=== PATIENT | female | born 1995 | race Hispanic/Latino ===

== ENCOUNTER 2017-11-27 17:14 | Emergency (ER) | payer OTHER ==
[2017-11-27] MEDS ORDERED: NA CHLORIDE 0.9% 1,000 ML ONE (18:17)
[2017-11-27] MEDS ORDERED: BACI/NEOMYCIN/POLY OINT 15GM TOP ONE (18:17)
[2017-11-27 19:02] LABS: Absolute Monocytes 0.5 K/uL (0.1-1.3); Absolute Neutrophil 6.4 K/uL (1.8-8.0); Basophils % 0.5 % (0-1.3); Hematocrit 39.4 % (36.0-45.0); Lymphocytes % 29.8 % (15.3-44.8); MCH 26.2 pg (27.0-35.0); MCV 80.3 fL (80-100); MPV 9.9 fL (7.6-11.3); Monocytes % 5.1 % (3.3-12.3)
[2017-11-27 19:04] LABS: Protime INR 1.08
[2017-11-27 19:07] LABS: Barbiturates NEGATIVE; Benzodiazepines NEGATIVE; Cocaine NEGATIVE; METHAMPHETAM NEGATIVE; Opiates NEGATIVE; THC Cannibis NEGATIVE
[2017-11-27 19:10] LABS: Bicarbonate 26 mEq/L (21-31); Glucose Level 93 mg/dL (65-120); Potassium 3.7 mEq/L (3.6-5.0); Sodium Level 136 mEq/L (135-145)
[2017-11-27 19:16] LABS: ALT/SGPT 13 IU/L (10-60); AST/SGOT 16 IU/L (10-42); Albumin 4.2 g/dL (3.2-5.5); Alkaline Phosphatase 75 IU/L (42-121); BUN Blood Urea Nitrogen 10 mg/dL (6-20); Bilirubin Direct < 0.1 mg/dL (0-0.2); Bilirubin Total 0.2 mg/dL (0.3-1.2); Protein, Total 7.8 g/dL (6.0-8.3)
[2017-11-27 19:25] LABS: Alcohol Serum/Plasma < 10 mg/dl; Salicylates Level < 4.0 mg/dl (<30)
[2017-11-27 19:34] LABS: Phencyclidine NEGATIVE
--- NOTE | 2017-11-27 20:54 | ER ---
Nurse's Notes [facility] Name: Itzel Prado Age: 22 yrs Sex: Female : 1995 Arrival Date: 11/27/2017 Time: 17:22 Bed 28 Private MD: Diagnosis: Adjustment disorder with depressed mood;Abrasion of left forearm;Abrasion of right forearm;Abrasion of right upper arm;Abrasion of left upper arm Presentation: 11/27 17:22 Presenting complaint: EMS states: called by mother for Pt "cutting self". Pt states "I kb1 wasn't trying to hurt myself, I was just relieving stress, I don't have any friends, I just wanted to relieve stress" Denies SI/HI. States has been cutting for the past three days. Transition of care: patient was not received from another setting of care. Onset of symptoms was November 27, 2017. Care prior to arrival: None. 17:22 Method Of Arrival: EMS: [facility] kb1 17:22 Acuity: YEE 4 kb1 Triage Assessment: 17:35 General: Appears in no apparent distress. Behavior is cooperative. Pain: Complains of kb1 pain in right upper arm. Neuro: Level of Consciousness is awake, alert, obeys commands, Oriented to person, place, time, situation. Cardiovascular: Patient's skin is warm and dry. Respiratory: Airway is patent. GI: No signs and/or symptoms were reported involving the gastrointestinal system. : No signs and/or symptoms were reported regarding the genitourinary system. Derm: fresh superficial cuts to right upper arm. Healing cuts to lower left arm and lower right arm. Pt reports that she has been cutting for the past three days to relieve stress. 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 - Social history:: Smoking status: Patient uses tobacco products, smokes one-half pack cigarettes per day. - Family history:: not pertinent. Screenin:39 Abuse screen: Denies threats or abuse. Nutritional screening: No deficits noted. kb1 Tuberculosis screening: No symptoms or risk factors identified. Fall Risk None identified. Assessment: 17:39 Reassessment: No changes from previously documented assessment. see triage assessment. kb1 19:04 Reassessment: Patient appears in no apparent distress at this time. Patient and/or kb1 family updated on plan of care and expected duration. Pain level reassessed. Patient is alert, oriented x 3, equal unlabored respirations, skin warm/dry/pink. Notified Dr. Cohn would like to speak with mother, Pt given phone to call mom. States she has attempted multiple times with no answer. 20:30 Reassessment: Patient appears in no apparent distress at this time. Patient and/or kb1 family updated on plan of care and expected duration. Pain level reassessed. Patient is alert, oriented x 3, equal unlabored respirations, skin warm/dry/pink. Pt attempting to contact mother or aunt. Notified Pt need responsible adult to come to ER to talk with . then Pt can be discharged. Vital Signs: 17:35 BP 128 / 90; Pulse 82; Resp 18; Temp 98.2; Pulse Ox 100% ; Weight 97.52 kg; Height 5 kb1 ft. 9 in. (175.26 cm); Pain 8/10; 19:05 BP 126 / 86; Pulse 82; Resp 18; Pulse Ox 100% ; kb1 20:32 BP 134 / 86; Pulse 86; Resp 18; Pulse Ox 100% ; kb1 21:02 BP 133 / 89; Pulse 80; Resp 18; Pulse Ox 100% ; tl3 17:35 Body Mass Index 31.75 (97.52 kg, 175.26 cm) kb1 ED Course: 17:22 Patient arrived in ED. kb1 17:24 Triage completed. kb1 17:35 Arm band placed on. kb1 17:39 Patient has correct armband on for positive identification. Bed in low position. Call kb1 light in reach. Pulse ox on. NIBP on. 17:39 No provider procedures requiring assistance completed. kb1 18:04 Daniel Cohn MD is Attending Physician. [facility] 18:19 Una Oshea, FARHAT is Primary Nurse. kb1 18:24 Urine collected: EKG done, by ED staff, reviewed by Daniel Cohn MD. kb1 18:25 Inserted saline lock: 20 gauge in left antecubital area, using aseptic technique. Blood kb1 collected. 18:30 Wound care: to superficial lacerations located on right bicep was cleaned with dressed kb1 with Neosporin, Patient tolerated well. 20:53 Brian Saleem MD is Referral Physician. [facility] 21:03 IV discontinued, intact, bleeding controlled, No redness/swelling at site. Pressure tl3 dressing applied. Administered Medications: 19:04 Drug: NS 0.9% 1000 ml Route: IV; Rate: 1 bolus; Site: left antecubital; kb1 20:33 Follow up: IV Status: Completed infusion kb1 19:04 Drug: Neosporin Ointment 1 application Route: Topical; Site: right upper arm; kb1 Outcome: 20:53 Discharge ordered by MD. eddie 21:03 Discharged to home ambulatory. tl3 21:03 Condition: stable 21:03 Discharge instructions given to patient, family, Instructed on discharge instructions, follow up and referral plans. Demonstrated understanding of instructions, follow-up care, stressed importance of follow up with Psych for counseling on a regular basis with pt and mom 21:04 Patient left the ED. tl3 Signatures: Daniel Cohn MD MD cha Brown, Kristina, RN RN kb1 Lynn Hamilton, RN RN tl3 Corrections: (The following items were deleted from the chart) 19:06 17:39 Patient did not have IV access during this emergency room visit. kb1 kb1
--- NOTE | 2017-11-27 20:54 | EDPHYS ---
Physician Documentation [facility] Name: Itzel Prado Age: 22 yrs Sex: Female : 1995 Arrival Date: 11/27/2017 Time: 17:22 Bed 28 Private MD: ED Physician Daniel Cohn HPI: 11/27 18:12 This 22 yrs old Female presents to ER via EMS with complaints of Psych Problem.eddie 18:12 The patient presents to the emergency department with depression. Onset: The eddie symptoms/episode began/occurred 4 week(s) ago. Past psychiatric history: Prior diagnosis: no previous psychiatric diagnosis known. Associated signs and symptoms: The patient has no apparent associated signs or symptoms. The patient has not experienced similar symptoms in the past. 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 - Social history:: Smoking status: Patient uses tobacco products, smokes one-half pack cigarettes per day. - Family history:: not pertinent. ROS: 18:12 Constitutional: Negative for fever, chills, and weight loss, Eyes: Negative for injury, eddie pain, redness, and discharge, ENT: Negative for injury, pain, and discharge, Neck: Negative for injury, pain, and swelling, Cardiovascular: Negative for chest pain, palpitations, and edema, Respiratory: Negative for shortness of breath, cough, wheezing, and pleuritic chest pain, Abdomen/GI: Negative for abdominal pain, nausea, vomiting, diarrhea, and constipation, Back: Negative for injury and pain, : Negative for injury, bleeding, discharge, and swelling, Skin: Negative for injury, rash, and discoloration, Neuro: Negative for headache, weakness, numbness, tingling, and seizure, Psych: Negative for depression, anxiety, suicide ideation, homicidal ideation, and hallucinations, Allergy/Immunology: Negative for hives, rash, and allergies, Endocrine: Negative for neck swelling, polydipsia, polyuria, polyphagia, and marked weight changes, Hematologic/Lymphatic: Negative for swollen nodes, abnormal bleeding, and unusual bruising. 18:12 MS/extremity: Positive for abrasion, of the right arm and left arm. Exam: 18:12 Constitutional: This is a well developed, well nourished patient who is awake, alert, eddie and in no acute distress. Head/Face: Normocephalic, atraumatic. Eyes: Pupils equal round and reactive to light, extra-ocular motions intact. Lids and lashes normal. Conjunctiva and sclera are non-icteric and not injected. Cornea within normal limits. Periorbital areas with no swelling, redness, or edema. ENT: Nares patent. No nasal discharge, no septal abnormalities noted. Tympanic membranes are normal and external auditory canals are clear. Oropharynx with no redness, swelling, or masses, exudates, or evidence of obstruction, uvula midline. Mucous membranes moist. Neck: Trachea midline, no thyromegaly or masses palpated, and no cervical lymphadenopathy. Supple, full range of motion without nuchal rigidity, or vertebral point tenderness. No Meningismus. Chest/axilla: Normal chest wall appearance and motion. Nontender with no deformity. No lesions are appreciated. Cardiovascular: Regular rate and rhythm with a normal S1 and S2. No gallops, murmurs, or rubs. Normal PMI, no JVD. No pulse deficits. Respiratory: Lungs have equal breath sounds bilaterally, clear to auscultation and percussion. No rales, rhonchi or wheezes noted. No increased work of breathing, no retractions or nasal flaring. Abdomen/GI: Soft, non-tender, with normal bowel sounds. No distension or tympany. No guarding or rebound. No evidence of tenderness throughout. Back: No spinal tenderness. No costovertebral tenderness. Full range of motion. Skin: Warm, dry with normal turgor. Normal color with no rashes, no lesions, and no evidence of cellulitis. MS/ Extremity: Pulses equal, no cyanosis. Neurovascular intact. Full, normal range of motion. Neuro: Awake and alert, GCS 15, oriented to person, place, time, and situation. Cranial nerves II-XII grossly intact. Motor strength 5/5 in all extremities. Sensory grossly intact. Cerebellar exam normal. Normal gait. Psych: Awake, alert, with orientation to person, place and time. Behavior, mood, and affect are within normal limits. Vital Signs: 17:35 BP 128 / 90; Pulse 82; Resp 18; Temp 98.2; Pulse Ox 100% ; Weight 97.52 kg; Height 5 kb1 ft. 9 in. (175.26 cm); Pain 8/10; 19:05 BP 126 / 86; Pulse 82; Resp 18; Pulse Ox 100% ; kb1 20:32 BP 134 / 86; Pulse 86; Resp 18; Pulse Ox 100% ; kb1 21:02 BP 133 / 89; Pulse 80; Resp 18; Pulse Ox 100% ; tl3 17:35 Body Mass Index 31.75 (97.52 kg, 175.26 cm) kb1 MDM: 18:04 Patient medically screened. [facility] 18:12 Data reviewed: vital signs, nurses notes, lab test result(s), EKG, radiologic studies, [facility] CT scan. 11/27 18:12 Order name: Acetaminophen; Complete Time: 20:13 [facility] 11/27 18:12 Order name: Basic Metabolic Panel; Complete Time: 20:13 [facility] 11/27 18:12 Order name: CBC with Diff; Complete Time: 20:13 [facility] 11/27 18:12 Order name: ETOH Level; Complete Time: 20:13 [facility] 11/27 18:12 Order name: Hepatic Function; Complete Time: 20:13 [facility] 11/27 18:12 Order name: PT-INR; Complete Time: 20:13 [facility] 11/27 18:12 Order name: Ptt, Activated; Complete Time: 20:13 [facility] 11/27 18:12 Order name: Salicylate; Complete Time: 20:13 [facility] 11/27 18:12 Order name: Urine Drug Screen; Complete Time: 20:13 [facility] 11/27 18:12 Order name: EKG; Complete Time: 18:13 [facility] 11/27 18:50 Order name: Urine Dipstick--Ancillary (enter results) 11/27 18:51 Order name: Urine --Ancillary (enter results) bd 11/27 18:12 Order name: Urine Test (obtain specimen); Complete Time: 19:03 [facility] 11/27 18:12 Order name: EKG - Nurse/Tech; Complete Time: 19:03 [facility] 11/27 18:12 Order name: IV Saline Lock; Complete Time: 19:03 [facility] 11/27 18:12 Order name: Labs collected and sent; Complete Time: 19:03 [facility] 11/27 18:12 Order name: Urine Dipstick-Ancillary (obtain specimen); Complete Time: 19:03 [facility] 11/27 18:12 Order name: Wound Care; Complete Time: 19:04 [facility] Administered Medications: 19:04 Drug: NS 0.9% 1000 ml Route: IV; Rate: 1 bolus; Site: left antecubital; kb1 20:33 Follow up: IV Status: Completed infusion [facility] 19:04 Drug: Neosporin Ointment 1 application Route: Topical; Site: right upper arm; [facility] Disposition: 11/27/17 20:53 Discharged to Home. Impression: Adjustment disorder with depressed mood, Abrasion of left forearm, Abrasion of right forearm, Abrasion of right upper arm, Abrasion of left upper arm. - Condition is Stable. - Discharge Instructions: Adjustment Disorder, Depression, Adult, Depression, Adult, [id number]. - Medication Reconciliation Form, Thank You Letter, Antibiotic Education, Prescription Opioid Use form. - Follow up: Private Physician; When: 2 - 3 days; Reason: Recheck today's complaints, Continuance of care, Re-evaluation by your physician. Follow up: Brian Saleem; When: 2 - 3 days; Reason: Recheck today's complaints, Re-evaluation by your physician. - Problem is new. - Symptoms have improved. Signatures: Dispatcher [employer] Daniel Santiago MD MD cha Brown, Kristina, RN RN kb1 Lynn Hamilton RN RN tl3
[2017-11-27 21:04] LABS: Urine Blood NEGATIVE (NEG); Urine Glucose NEGATIVE (NEG); Urine Protein NEGATIVE (NEG); Urine Specific Gravity 1.025 (1.005-1.030)
[2017-11-27 21:04] LABS: Urine Specific Gravity 1.025 (1.005-1.030)
--- NOTE | 2017-11-28 06:56 | EKG ---
Test Date: 2017-11-27 Test Time: 18:29:12 Diaper Folder: FARHEEN MEASUREMENT RESULTS: Intervals: Rate: 78 SC: 160 QRSD: 84 QT: 380 QTc: 433 [place]: P: 31 SC: 160 QRS: 24 T: 27 INTERPRETIVE STATEMENTS: Normal sinus rhythm Normal ECG Compared to ECG 07/21/2015 23:46:31 Sinus tachycardia no longer present Electronically Signed On 11-28-17 06:55:16 CDT by Shukri Salgado
== END 2017-11-27 21:04 | disposition home or self-care (01) ==
LOC: ER 17:14
DX: S50.812A Abrasion of left forearm, initial encounter (principal); S50.811A Abrasion of right forearm, initial encounter; S40.812A Abrasion of left upper arm, initial encounter; S40.811A Abrasion of right upper arm, initial encounter; X58.XXXA Exposure to other specified factors, initial encounter; Y93.9 Activity, unspecified; Y92.9 Unspecified place or not applicable; F32.9 Major depressive disorder, single episode, unspecified; F17.210 Nicotine dependence, cigarettes, uncomplicated
CPT/HCPCS: 36415; 80048; 80076; 80307; 80320; 80329; 81003; 81025; 85025; 85610; 85730; 93005; 96360; 99284; J7030

== ENCOUNTER 2018-07-07 14:48 | Emergency (ER) | payer OTHER ==
[2018-07-07] MEDS ORDERED: predniSONE 20 MG TAB ONE (15:17)
[2018-07-07] MEDS ORDERED: ALBUTEROL 2.5 MG/3 ML NEB SOL ONE (15:17)
[2018-07-07] MEDS ORDERED: IPRATROPIUM BROM 0.5MG/2.5ML ONE (15:17)
[2018-07-07 15:58] LABS: Urine Blood TRACE (NEG); Urine Glucose NEGATIVE (NEG); Urine Protein NEGATIVE (NEG); Urine Specific Gravity 1.025 (1.005-1.030)
--- NOTE | 2018-07-07 16:26 | EDPHYS ---
Physician Documentation [facility] Name: Itzel Prado Age: 22 yrs Sex: Female : 1995 Arrival Date: 07/07/2018 Time: 14:51 Bed 19 Private MD: ED Physician Ibrahima Poole HPI: 07/07 16:00 This 22 yrs old Female presents to ER via Ambulatory with complaints of pm1 Wheezing and sore throat. 16:35 The patient presents to the emergency department with wheezing, Current therapy: pm1 albuterol inhaler, albuterol nebs, that began Ran out of her medications, the patient was reported to have audible wheezing, Pre-hospital care: none. Onset: The symptoms/episode began/occurred today. Modifying factors: The symptoms are alleviated by nothing, the symptoms are aggravated by nothing. Associated signs and symptoms: Pertinent positives: sore throat, Pertinent negatives: chest pain, fever, nausea, palpitations, rash, vomiting. The patient has experienced similar episodes in the past, multiple times. The patient has not recently seen a physician. patient came to the ER requesting refill of her albuterol and wants a strep and flu test. 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 - Social history:: Smoking status: Patient uses tobacco products, smokes one-half pack cigarettes per day. - Ebola Screening: : No symptoms or risks identified at this time. ROS: 16:35 Constitutional: Negative for fever, chills, and weight loss, Eyes: Negative for injury, pm1 pain, redness, and discharge, Neck: Negative for injury, pain, and swelling, Cardiovascular: Negative for chest pain, palpitations, and edema. 16:35 Abdomen/GI: Negative for abdominal pain, nausea, vomiting, diarrhea, and constipation, Back: Negative for injury and pain. 16:35 : Negative for injury, bleeding, discharge, and swelling, MS/Extremity: Negative for injury and deformity, Skin: Negative for injury, rash, and discoloration, Neuro: Negative for headache, weakness, numbness, tingling, and seizure. 16:35 ENT: Positive for sore throat, Negative for drainage from ear(s), ear pain, difficulty swallowing, difficulty handling secretions, hoarseness. 16:35 Respiratory: Positive for wheezing, Negative for cough, dyspnea on exertion, shortness of breath, sputum production. Exam: 16:35 Constitutional: This is a well developed, well nourished patient who is awake, alert, pm1 and in no acute distress. Head/Face: Normocephalic, atraumatic. Eyes: Pupils equal round and reactive to light, extra-ocular motions intact. Lids and lashes normal. Conjunctiva and sclera are non-icteric and not injected. Cornea within normal limits. Periorbital areas with no swelling, redness, or edema. ENT: Nares patent. No nasal discharge, no septal abnormalities noted. Tympanic membranes are normal and external auditory canals are clear. Oropharynx with no redness, swelling, or masses, exudates, or evidence of obstruction, uvula midline. Mucous membranes moist. Neck: Trachea midline, no thyromegaly or masses palpated, and no cervical lymphadenopathy. Supple, full range of motion without nuchal rigidity, or vertebral point tenderness. No Meningismus. Chest/axilla: Normal chest wall appearance and motion. Nontender with no deformity. No lesions are appreciated. Cardiovascular: Regular rate and rhythm with a normal S1 and S2. No gallops, murmurs, or rubs. Normal PMI, no JVD. No pulse deficits. 16:35 Abdomen/GI: Soft, non-tender, with normal bowel sounds. No distension or tympany. No guarding or rebound. No evidence of tenderness throughout. Back: No spinal tenderness. No costovertebral tenderness. Full range of motion. Skin: Warm, dry with normal turgor. Normal color with no rashes, no lesions, and no evidence of cellulitis. MS/ Extremity: Pulses equal, no cyanosis. Neurovascular intact. Full, normal range of motion. 16:35 Respiratory: the patient does not display signs of respiratory distress, Respirations: normal, Breath sounds: wheezing: expiratory is heard diffusely. 16:35 Neuro: Orientation: is normal, Motor: is normal, moves all fours, strength is normal. Vital Signs: 14:55 BP 127 / 83; Pulse 114; Resp 16; Temp 97.6; Pulse Ox 94% on R/A; Weight 86.18 kg; la1 Height 5 ft. 5 in. (165.10 cm); 15:57 Pulse 106; Resp 20; Pulse Ox 96% on R/A; em 14:55 Body Mass Index 31.62 (86.18 kg, 165.10 cm) la1 MDM: 14:56 Patient medically screened. pm1 16:23 Data reviewed: vital signs. Counseling: I had a detailed discussion with the patient pm1 and/or guardian regarding: the historical points, exam findings, and any diagnostic results supporting the discharge/admit diagnosis, the need for outpatient follow up, to return to the emergency department if symptoms worsen or persist or if there are any questions or concerns that arise at home. 07/07 15:02 Order name: Flu; Complete Time: 16:23 pm1 07/07 15:02 Order name: Strep; Complete Time: 16:23 pm1 07/07 15:25 Order name: Urine Dipstick--Ancillary (enter results); Complete Time: 16:23 eb 07/07 15:25 Order name: Urine --Ancillary (enter results); Complete Time: 16:23 eb 07/07 15:42 Order name: Throat Culture EDKY 07/07 15:15 Order name: Urine Dipstick-Ancillary (obtain specimen); Complete Time: 15:16 pm1 07/07 15:15 Order name: Urine Test (obtain specimen); Complete Time: 15:16 pm1 Administered Medications: 15:16 Drug: Albuterol - atroVENT (3:1) (2.5 mg - 0.5 mg) 3 ml Route: Nebulizer; em 16:14 Follow up: Response: No adverse reaction; Marked relief of symptoms em 15:16 Drug: predniSONE 60 mg Route: PO; em 16:14 Follow up: Response: No adverse reaction em Disposition: 07/08 09:51 Co-signature as Attending Physician, Ibrahima Poole MD. gs Disposition: 07/07/18 16:25 Discharged to Home. Impression: Unspecified asthma with (acute) exacerbation, Acute pharyngitis. - Condition is Stable. - Discharge Instructions: Asthma, Adult, How to Use an Inhaler, Pharyngitis. - Prescriptions for Albuterol Sulfate 2.5 mg /3 mL (0.083 %) Inhalation Solution for Nebulization - inhale 1 unit by NEBULIZATION route every 8 hours As needed; 1 box. Medrol (Tyler) 4 mg Oral Tablets, Dose Pack - take 1 tablet by ORAL route as directed - follow package instructions; 1 packet. Albuterol Sulfate 90 mcg/actuation - inhale 1-2 puff by INHALATION route every 4-6 hours; 1 Inhaler. - Medication Reconciliation Form, Thank You Letter, Antibiotic Education form. - Follow up: Emergency Department; When: As needed; Reason: Worsening of condition. Follow up: Private Physician; When: 2 - 3 days; Reason: Recheck today's complaints, Continuance of care, Re-evaluation by your physician. - Problem is new. - Symptoms have improved. Signatures: Dispatcher [employer] EDMS Basilio Mullen, CINDER PITMAN CINDER PITMAN Mani Diaz RN RN la1 Martinez Torres RN RN hj Jay Gomez, AMBULANCE ATTENDANT AMBULANCE ATTENDANT pm1 Ibrahima Poole MD MD gs Corrections: (The following items were deleted from the chart) 07/07 16:33 16:25 07/07/2018 16:25 Discharged to Home. Impression: Unspecified asthma with (acute) hj exacerbation; Acute pharyngitis. Condition is Stable. Forms are Medication Reconciliation Form, Thank You Letter, Antibiotic Education, Prescription Opioid Use. Follow up: Emergency Department; When: As needed; Reason: Worsening of condition. Follow up: Private Physician; When: 2 - 3 days; Reason: Recheck today's complaints, Continuance of care, Re-evaluation by your physician. Problem is new. Symptoms have improved. pm1
--- NOTE | 2018-07-07 16:26 | ER ---
Nurse's Notes [facility] Name: Itzel Prado Age: 22 yrs Sex: Female : 1995 Arrival Date: 07/07/2018 Time: 14:51 Bed 19 Private MD: Diagnosis: Unspecified asthma with (acute) exacerbation;Acute pharyngitis Presentation: 07/07 14:54 Presenting complaint: Patient states: I have asthma and need my medications filles, I la1 also need to be checked for strep and flu because I have a cold. Transition of care: patient was not received from another setting of care. Onset of symptoms was July 07, 2018. Risk Assessment: Do you want to hurt yourself or someone else? Patient reports no desire to harm self or others. Initial Sepsis Screen: Does the patient meet any 2 criteria? No. Patient's initial sepsis screen is negative. Does the patient have a suspected source of infection? No. Patient's initial sepsis screen is negative. Care prior to arrival: None. 14:54 Method Of Arrival: Ambulatory la1 14:54 Acuity: YEE 4 la1 Triage Assessment: 16:32 General: Appears in no apparent distress. uncomfortable, Behavior is calm, cooperative, hj appropriate for age. Pain: Denies pain. 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 - Social history:: Smoking status: Patient uses tobacco products, smokes one-half pack cigarettes per day. - Ebola Screening: : No symptoms or risks identified at this time. Screenin:32 Abuse screen: Denies threats or abuse. Denies injuries from another. Nutritional hj screening: No deficits noted. Tuberculosis screening: No symptoms or risk factors identified. Fall Risk None identified. Assessment: 15:14 General: Appears in no apparent distress. uncomfortable, Behavior is calm, cooperative. em Pain: Denies pain. Neuro: Level of Consciousness is awake, alert, obeys commands, Oriented to person, place, time, situation. Cardiovascular: Capillary refill < 3 seconds Patient's skin is warm and dry. Respiratory: Airway is patent Respiratory effort is even, unlabored, Respiratory pattern is regular, symmetrical, Breath sounds with wheezes bilaterally. Onset: The symptoms/episode began/occurred yesterday, the patient has mild shortness of breath. GI: Abdomen is round non-distended. : No signs and/or symptoms were reported regarding the genitourinary system. EENT: No signs and/or symptoms were reported regarding the EENT system. Derm: Skin is intact, Skin is pink, warm \T\ dry. Musculoskeletal: Range of motion: intact in all extremities. 15:14 Reassessment: I agree with assessment completed by Basilio Mullen LVN . aa5 15:50 Reassessment: Patient appears in no apparent distress at this time. Patient and/or em family updated on plan of care and expected duration. Pain level reassessed. Patient is alert, oriented x 3, equal unlabored respirations, skin warm/dry/pink. Patient states feeling better. Patient states symptoms have improved. Vital Signs: 14:55 BP 127 / 83; Pulse 114; Resp 16; Temp 97.6; Pulse Ox 94% on R/A; Weight 86.18 kg; la1 Height 5 ft. 5 in. (165.10 cm); 15:57 Pulse 106; Resp 20; Pulse Ox 96% on R/A; em 14:55 Body Mass Index 31.62 (86.18 kg, 165.10 cm) la1 ED Course: 14:51 Patient arrived in ED. tw3 14:54 Triage completed. la1 14:55 Arm band placed on left wrist. la1 14:56 Jay Gomez NP is PHCP. pm1 14:56 Ibrahima Poole MD is Attending Physician. pm1 14:56 Basilio Mullen LVN is Primary Nurse. em 15:17 Flu and/or RSV swab sent to lab. Strep swab sent to lab. em 16:32 Patient has correct armband on for positive identification. Bed in low position. Call hj light in reach. Side rails up X 1. 16:33 No provider procedures requiring assistance completed. Patient did not have IV access hj during this emergency room visit. Administered Medications: 15:16 Drug: Albuterol - atroVENT (3:1) (2.5 mg - 0.5 mg) 3 ml Route: Nebulizer; em 16:14 Follow up: Response: No adverse reaction; Marked relief of symptoms em 15:16 Drug: predniSONE 60 mg Route: PO; em 16:14 Follow up: Response: No adverse reaction em Outcome: 16:25 Discharge ordered by . pm1 16:33 Discharged to home ambulatory. 16:33 Condition: stable 16:33 Discharge instructions given to patient, Instructed on discharge instructions, follow up and referral plans. medication usage, Demonstrated understanding of instructions, follow-up care, medications, Prescriptions given X 3. 16:33 Patient left the ED. Signatures: Basilio Mullen, SURGEON/PRESIDENT SURGEON/PRESIDENT Kavitha Aguilar, RN RN aa5 Mani Perez RN RN la1 Martinez Torres RN RN hj Jay Gomez, ACCESS ASSOC ACCESS ASSOC pm1 Lucy Rogers tw3
== END 2018-07-07 16:33 | disposition home or self-care (01) ==
LOC: ER 14:48
DX: J45.901 Unspecified asthma with (acute) exacerbation (principal); F17.210 Nicotine dependence, cigarettes, uncomplicated; Z79.899 Other long term (current) drug therapy
CPT/HCPCS: 81003; 81025; 87070; 87081; 87804; 94640; 99284; J7512

== ENCOUNTER 2022-08-30 10:09 | Emergency (ER) | payer OTHER ==
--- OUTSIDE RECORDS SUMMARY | 2022-08-30 10:14 | XMS REPORT | Continuity of Care Document ---
:1995 Author Organization Formerly [facility] t Address [address] [place] [address] Care Team Providers Name Role Phone Pcp, Patient Does Not Have A Primary Care Physician +[id number] Doctor Unassigned, [place] Attending Clinician Unavailable Albert Cheema MD Attending Clinician ALBERT CHEEMA Attending Clinician Unavailable Albert Cheema MD Admitting Clinician ALBERT CHEEMA Admitting Clinician Unavailable Payers Payer Name Policy Type Policy Number Effective Date Expiration Date S ource Problems Condition Condition Condition Status Onset Resolution Last Treating Co mments Source Name Details Category Date Date Treatment Clinician Date Pseudopreg Pseudopreg Disease Active [place] 2-24 ity of 00:00: [address] Irregular Irregular Disease Active Uni vers menstrual menstrual 2-15 ity of cycle cycle 00:00: [address] Obese Obese Disease Active Univers 2-15 ity of 00:00: [address] Tobacco Tobacco Disease Active Univers use use 2-15 ity of disorder disorder 00:00: [address] Schizophre Schizophre Disease Active U nivers kp kp 2-15 ity of 00:00: [address] Depression Depression Disease Active U nivers 2-15 ity of 00:00: [address] Generalize Generalize Disease Active U nivers d anxiety d anxiety 2-15 ity of disorder disorder 00:00: [place] 00 [facility] History of History of Disease Active U nivers suicide suicide 2-15 ity of attempt attempt 00:00: [place] 00 [facility] Allergies, Adverse Reactions, Alerts Allergy Allergy Status Severity Reaction(s) Onset Inactive Treating Comm ents Source Name Type Date Date Clinician QUETIAPI DRUG Active Unknown-Cmnt Un deanna NE INGREDI 2-13 ity of FUMARATE 00:00: [place] 00 [facility] Quetiapi Propensi Active Unknown - Uni vers ne ty to See comments 2-13 ity of Fumarate adverse 00:00: [place] reaction 00 Medical s [place] Social History Social Habit Start Date Stop Date Quantity Comments Source History of tobacco Cigarette Smoker University of use [facility] Alcohol intake 2017-03-12 2017-03-12 Current University 00:00:00 00:00:00 non-drinker of [facility] alcohol Brick (finding) Cigarette 2014-10-03 2014-10-03 University of pack-years 00:00:00 00:00:00 [facility] Tobacco use and 2014-10-03 2014-10-03 Never used Universit y of exposure 00:00:00 00:00:00 [facility] Cigarettes smoked 2014-10-03 2014-10-03 Univers ity of current (pack per 00:00:00 00:00:00 [place] ) - Reported Branch Sex Assigned At [birth year] Universit y of 00:00:00 00:00:00 [facility] Smoking Status Start Date Stop Date Source Current every day smoker 2014-10-03 00:00:00 Uni versity of [facility] Medications Ordered Filled Start Stop Current Ordering Indication Dosage Frequency Signature Comments Components Source Medication Medication Date Date Medication? Clinician (SIG) Name Name RISPERIDONE Yes [id number] by Un deanna MICROSPHERE 2-25 Intramuscu it y of S 02:12: lar route [place] (RISPERDAL 44 every 2 Medica l CONSTA IM) (two) Branch weeks. lurasidone Yes [id number] 1{tbl} Take 1 Tab Univers (LATUDA) 80 2-25 by mouth ity of mg Tab 02:12: daily. [place] 44 [facility] divalproex 0 Yes [id number] 500mg Take 500 Univers (DEPAKOTE) 2-25 mg by ity of 500 mg EC 02:12: mouth [place] tablet 44 every 12 Medical (twelve) Branch hours. traZODone 0 Yes [id number] 150mg Take 150 Univers (DESYREL) 2-25 mg by ity of 150 mg 02:12: mouth at [place] tablet 44 bedtime. Medical Branch RISPERIDONE 0 Yes [id number] by Un deanna MICROSPHERE 2-24 Intramuscu it y of S 20:12: lar route [place] (RISPERDAL 44 every 2 Medica l CONSTA IM) (two) Branch weeks. lurasidone Yes [id number] 1{tbl} Take 1 Tab Univers (LATUDA) 80 2-24 by mouth ity of mg Tab 20:12: daily. [place] 44 [facility] Branch divalproex 0 Yes [id number] 500mg Take 500 Univers (DEPAKOTE) 2-24 mg by ity of 500 mg EC 20:12: mouth [place] tablet 44 every 12 Medical (twelve) Branch hours. traZODone Yes [id number] 150mg Take 150 Univers (DESYREL) 2-24 mg by ity of 150 mg 20:12: mouth at [place] tablet 44 bedtime. [facility] Branch Immunizations Ordered Filled Immunization Date Status Comments [facility] e Immunization Name Name Influenza Virus 2010-05-13 Completed Universit y of Vaccine 00:00:00 [facility] Influenza Virus 2010-05-13 Completed Universit y of Vaccine 00:00:00 [facility] HPV 2009-12-28 Completed University of 00:00:00 [facility] HPV 2009-12-28 Completed University of 00:00:00 [facility] HPV 2009-09-30 Completed University of 00:00:00 [facility] HPV 2009-09-30 Completed University of 00:00:00 [facility] HPV 2009-06-30 Completed University of 00:00:00 [facility] HPV 2009-06-30 Completed University of 00:00:00 [facility] Td 2007-08-21 Completed University of 00:00:00 [facility] Td 2007-08-21 Completed University of 00:00:00 [facility] Influenza Virus 2005-07-06 Completed Universit y of Vaccine 00:00:00 [facility] Influenza Virus 2005-07-06 Completed Universit y of Vaccine 00:00:00 [facility] Vital Signs Vital Name Observation Time Observation Value Comments Source Systolic blood 2020-10-15 00:30:00 136 mm[Hg] Univer sity of pressure [facility] Diastolic blood 2020-10-15 00:30:00 75 mm[Hg] Unive rsity of pressure [facility] Heart rate 2020-10-15 00:30:00 104 /min Universi ty of [facility] Respiratory rate 2020-10-15 00:30:00 18 /min [facility] Oxygen saturation in 2020-10-15 00:30:00 100 /min [facility] Arterial blood by [facility] Pulse oximetry [place] Body temperature 2020-10-15 00:05:[address] [facility] Procedures Procedure Date / Time Performing Clinician Source Performed VACCINATIONS - 2022-01-03 05:01:00 Doctor Unassigned, No [facility] CONSENTS, ELIGIBILITY, Name Medical B [facility] HISTORY Encounters Start End Encounter Admission Attending Care Care Encounter Source Date/Time Date/Time Type Type Clinicians Facility Department ID 2022-01-03 2022-01-03 Orders Doctor CRYSTAL [id number] Univers 00:00:00 00:00:00 Only Unassigned, LILIANA [id number] ity of [place] [facility] [id number] Don [id number] [facility] 009 Branch 2020-10-14 2020-10-14 [facility] [id number] Univers 17:50:00 19:15:00 Encounter Albert Burton [id number] ity of [place] [id number] [facility] [id number] [facility] 083 Branch 2020-10-14 2020-10-14 Outpatient P [facility] ADAMARIS [id number] Univers 17:50:00 17:50:00 ALBERT morrow [facility] Results This patient has no known results.
[2022-08-30 10:39] LABS: Urine Blood Negative (Negative); Urine Glucose Negative (Negative); Urine Protein Negative (Negative)
--- NOTE | 2022-08-30 11:00 | EDPHYS ---
Physician Documentation [facility] Name: Itzel Prado Age: 26 yrs Sex: Female : 1995 Arrival Date: 08/30/2022 Time: 10:10 Bed 10 Private MD: ED Physician Shelly Saleem HPI: 08/30 11:12 This 26 yrs old Female presents to ER via Ambulatory with complaints of kb Possible , Abdominal Pain. 11:12 The patient presents to the emergency department with abdominal pain, described as kb crampy. course: care: none, Ultrasound: the patient had an ultrasound, which was normal. Previous pregnancies: the patient has never been . Associated signs and symptoms: Pertinent positives: abdominal pain, Pertinent negatives: chest pain, diarrhea, dysuria, fever, frequency, nausea, ruptured membranes, seizure, shortness of breath, vaginal bleeding, vaginal discharge, vomiting. The patient has not experienced similar symptoms in the past. The patient has not recently seen a physician. Pt reports she is with first and due now. Reports abd muscles have been tightening up and letting go intermittently for the past 2 days. . 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 - Social history:: Smoking status: Patient reports the use of cigarette tobacco products, smokes one pack cigarettes per day. ROS: 11:12 Constitutional: Negative for fever, chills, and weight loss. kb 11:12 Abdomen/GI: Positive for abdominal cramps. 11:12 All other systems are negative. Exam: 11:12 Constitutional: This is a well developed, well nourished patient who is awake, alert, kb and in no acute distress. Head/Face: Normocephalic, atraumatic. ENT: Moist Mucous membranes Cardiovascular: Regular rate and rhythm with a normal S1 and S2. No gallops, murmurs, or rubs. No pulse deficits. Respiratory: Respirations even and unlabored. No increased work of breathing. Talking in full sentences Abdomen/GI: Soft, non-tender. No distention Skin: Warm, dry with normal turgor. Normal color. MS/ Extremity: Pulses equal, no cyanosis. Neurovascular intact. Full, normal range of motion. Neuro: Awake and alert, GCS 15, oriented to person, place, time, and situation. Moves all extremities. Normal gait. Vital Signs: 10:28 BP 108 / 73; Pulse 111; Resp 15; Temp 99.2(O); Pulse Ox 98% on R/A; Weight 86.18 kg; ss Height 5 ft. 8 in. (172.72 cm); Pain 08/30; 10:28 Body Mass Index 28.89 (86.18 kg, 172.72 cm) ss MDM: 10:28 Patient medically screened. kb 10:55 Differential diagnosis: UTI, . Data reviewed: vital signs, nurses notes. kb Counseling: I had a detailed discussion with the patient and/or guardian regarding: the historical points, exam findings, and any diagnostic results supporting the discharge/admit diagnosis, lab results, the need for outpatient follow up, a family practitioner, to return to the emergency department if symptoms worsen or persist or if there are any questions or concerns that arise at home. 11:09 Differential diagnosis: nonspecific abd pain. Test considered but Not performed: Labs: kb Quantitative Hcg, CBC, BMP considered, but urine test is negative. Ultrasound OB US considered, but pt's urine test is negative. 11:15 ED course: Discussed negative results with pt. Pt states "my partner was kb trying to hide the so maybe it is hidden from y'all too." Pt will follow up with PCP. Ambulated out of ED with steady gait. 08/30 10:39 Order name: Urine Dipstick-Ancillary; Complete Time: 10:42 EDMS 08/30 10:47 Order name: Urine --Ancillary (enter results); Complete Time: 10:54 bd 08/30 10:28 Order name: Urine Dipstick-Ancillary (obtain specimen); Complete Time: 10:35 kb 08/30 10:28 Order name: Urine Test (obtain specimen); Complete Time: 10:35 kb Administered Medications: No medications were administered Disposition Summary: 08/30/22 10:59 Discharge Ordered Location: Home kb Condition: Stable kb Diagnosis - Abdominal pain, Generalized kb Followup: kb - With: Emergency Department - When: As needed - Reason: Worsening of condition Followup: kb - With: Private Physician - When: 2 - 3 days - Reason: Recheck today's complaints, Continuance of care, Re-evaluation by your physician Discharge Instructions: - Discharge Summary Sheet kb - Abdominal Pain, Adult, [id number] kb Forms: - Medication Reconciliation Form kb - Thank You Letter kb - Antibiotic Education kb - Prescription Opioid Use kb Signatures: Dispatcher [employer] EDIA Kenyatta Abreu, Silvana Ramirez RN RN ss Corrections: (The following items were deleted from the chart) 11:08 10:55 Differential diagnosis: UTI, kb kb
--- NOTE | 2022-08-30 11:00 | ER ---
Nurse's Notes [facility] Name: Itzel Prado Age: 26 yrs Sex: Female : 1995 Arrival Date: 08/30/2022 Time: 10:10 Bed 10 Private MD: Diagnosis: Abdominal pain, Generalized Presentation: 08/30 10:28 Chief complaint: Patient states: Pt c/o abd cramping that began 2 days ago. Pt believes ss she is and due now. Unknown last LMP. Coronavirus screen: Client denies travel out of the [place] in the last 14 days. Ebola Screen: Patient denies exposure to infectious person. Patient denies travel to an Ebola-affected area in the 21 days before illness onset. Initial Sepsis Screen: Does the patient meet any 2 criteria? No. Patient's initial sepsis screen is negative. Does the patient have a suspected source of infection? No. Patient's initial sepsis screen is negative. Risk Assessment: Do you want to hurt yourself or someone else? Patient reports no desire to harm self or others. Onset of symptoms was August 28, 2022. 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 - Social history:: Smoking status: Patient reports the use of cigarette tobacco products, smokes one pack cigarettes per day. Vital Signs: 10:28 BP 108 / 73; Pulse 111; Resp 15; Temp 99.2(O); Pulse Ox 98% on R/A; Weight 86.18 kg; ss Height 5 ft. 8 in. (172.72 cm); Pain 1/10; 10:28 Body Mass Index 28.89 (86.18 kg, 172.72 cm) ED Course: 10:10 Patient arrived in ED. mr 10:16 Kenyatta Abreu [facility]-C [facility] kb 10:16 Shelly Saleem MD is Attending Physician. kb 10:31 Triage completed. ss 10:31 Arm band placed on right wrist. ss 10:35 Smirch, Silvana, RN is Primary Nurse. ss 11:00 No provider procedures requiring assistance completed. Patient did not have IV access ss during this emergency room visit. Administered Medications: No medications were administered Outcome: 10:59 Discharge ordered by . long 11:00 Discharged to home ambulatory. ss 11:00 Condition: good 11:00 Instructed on LAURA You discussed plan of care. Pt left prior to signing discharge instructions. 11:00 Patient left the ED. ss Signatures: Kenyatta Abreu, DAVIS-Keith CANNON-Genie Alex mr Silvana Gomez, RN RN ss
[2022-08-30 11:05] VITALS: BP 108/73; TEMP 99.2; O2SAT 98
== END 2022-08-30 11:00 | disposition home or self-care (01) ==
LOC: ER 10:09
DX: R10.84 Generalized abdominal pain (principal); F17.210 Nicotine dependence, cigarettes, uncomplicated
CPT/HCPCS: 81003; 81025; 99281

== ENCOUNTER → 2023-09-02 | Emergency (ER) | payer OTHER ==
[~2023-09-02] MED LIST: AMOX/K CLAV 875 MG TAB ONE; HYDROCODONE/APAP 5/325 MG TAB ONE
--- OUTSIDE RECORDS SUMMARY | 2023-09-02 11:43 | XMS REPORT | Continuity of Care Document ---
Author Name Unknown Address [address] [place] [address] [facility] thconnect Address 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 Role Phone Pcp, Patient Does Not Have A Primary Care Physic jacqueline Doctor Unassigned, Flowella Attending Clinician U Albert Ball MD Attending Clinician [phone] ALBERT CHEEMA Attending Clinician Unavailable Albert Cheema MD Admitting Clinician [phone] ALBERT CHEEMA Admitting Clinician Unavailable Payers Payer Name Policy Type Policy Number Effective Date Expirati on Date Source Problems Condition Name Condition Details Condition Category Status Onset Date Resolution Date Last Treatment Date Treating Clinician Comments Source Pseudopreg brigid Pseudopreg brigid Disease Active 10-14 00:00: 00 [facility] Irregular menstrual cycle Irregular menstrual cycle Disease Active 10-05 00:00: 00 [facility] Obese Obese Disease Active 10-05 00:00: 00 [facility] Tobacco use disorder Tobacco use disorder Disease Active 10-05 00:00: 00 [facility] Schizophre kp Schizophre kp Disease Active 10-05 00:00: 00 [facility] Depression Depression Disease Active 10-05 00:00: 00 [facility] Generalize d anxiety disorder Generalize d anxiety disorder Disease Active 10-05 00:00: 00 [facility] History of suicide attempt History of suicide attempt Disease Active 10-05 00:00: 00 [facility] Allergies, Adverse Reactions, Alerts Allergy Name Allergy Type Status Severity Reaction(s) Onset Date Inactive Date Treating Clinician Comments Source QUETIAPI NE FUMARATE DRUG INGREDI Active Unknown-Cmnt 10-03 00:00: 00 [facility] Quetiapi ne Fumarate Propensi ty to adverse reaction s Active Unknown - See comments 10-03 00:00: 00 [facility] Social History Social Habit Start Date Stop Date Quantity Comments Source History of tobacco use Cigarette Smoker [facility] Alcohol intake 2017-03-12 00:00:00 2017-03-12 00:00:00 Current non-drinker of alcohol (finding) [facility] Cigarette pack-years 2014-10-03 00:00:00 2014-10-03 00:00:00 [facility] Tobacco use and exposure 2014-10-03 00:00:00 2014-10-03 00:00:00 Never used [facility] Cigarettes smoked current (pack per day) - Reported 2014-10-03 00:00:00 2014-10-03 00:00:00 [facility] Sex Assigned At 1995 00:00:00 1995 00:00:00 [facility] Smoking Status Start Date Stop Date Source Current every day smoker 2014-10-03 00:00:00 [facility] Medications Ordered Medication Name Filled Medication Name Start Date Stop Date Current Medication? Ordering Clinician Indication Dosage Frequency Signature (SIG) Comments Components Source RISPERIDONE MICROSPHERE S (RISPERDAL CONSTA IM) 10-15 02:12: 44 Yes [id number] by Intramuscu lar route every 2 (two) weeks. [facility] lurasidone (LATUDA) 80 mg Tab 10-15 02:12: 44 Yes [id number] 1{tbl} Take 1 Tab by mouth daily. [facility] divalproex (DEPAKOTE) 500 mg EC tablet 10-15 02:12: 44 Yes [id number] 500mg Take 500 mg by mouth every 12 (twelve) hours. [facility] traZODone (DESYREL) 150 mg tablet 10-15 02:12: 44 Yes [id number] 150mg Take 150 mg by mouth at bedtime. [facility] RISPERIDONE MICROSPHERE S (RISPERDAL CONSTA IM) 10-14 20:12: 44 Yes [id number] by Intramuscu lar route every 2 (two) weeks. [facility] lurasidone (LATUDA) 80 mg Tab 10-14 20:12: 44 Yes [id number] 1{tbl} Take 1 Tab by mouth daily. [facility] divalproex (DEPAKOTE) 500 mg EC tablet 10-14 20:12: 44 Yes [id number] 500mg Take 500 mg by mouth every 12 (twelve) hours. [facility] traZODone (DESYREL) 150 mg tablet 10-14 20:12: 44 Yes [id number] 150mg Take 150 mg by mouth at bedtime. [facility] Vital Signs Vital Name Observation Time Observation Value Comments S adamace Systolic blood pressure 2020-10-15 00:30:00 136 mm[Hg] [facility] Diastolic blood pressure 2020-10-15 00:30:00 75 mm[Hg] [facility] Heart rate 2020-10-15 00:30:00 104 /min [facility] Respiratory rate 2020-10-15 00:30:00 18 /min [facility] Oxygen saturation in Arterial blood by Pulse oximetry 2020-10-15 00:30:00 100 /min [facility] Body temperature 2020-10-15 00:05:00 36.94 Анна [facility] Procedures Procedure Date / Time Performed Performing Clinician Source VACCINATIONS - CONSENTS, ELIGIBILITY, HISTORY 2022-01-03 05:01:00 Doctor Unassigned, Flowella [facility] Encounters Start Date/Time End Date/Time Encounter Type Admission Type Attending Clinicians Care Facility Care Department Encounter ID Source 2022-01-03 00:00:00 2022-01-03 00:00:00 Orders Only Doctor Unassigned, Flowella [facility] [id number] [facility] 2020-10-14 17:50:00 2020-10-14 19:15:00 Hospital Encounter Albert Cheema [facility] [id number] [facility] 2020-10-14 17:50:00 2020-10-14 17:50:00 Outpatient P ALBERT CHEEMA ADAMARIS [id number] [facility]
--- NOTE | 2023-09-02 12:01 | EDPHYS ---
Physician Documentation [facility] Name: Itzel Prado Age: 28 yrs Sex: Female : 1995 Arrival Date: 09/02/2023 Time: 11:41 Bed IW5 Private MD: ED Physician Daniel Cohn HPI: 09/02 12:24 This 28 yrs old Female presents to ER via Unassigned with complaints of kb Toothache. 12:24 Pt is a 28 year old female who presents for toothache that started one week ago. Denies kb fever, chills, States the pain is getting worse. Nothing makes pain better or worse. Historical: - Allergies: 12:26 No Known Allergies; nj1 - PMHx: 12:26 Asthma; nj1 - Immunization history:: Client reports having NOT received the Covid vaccine. - Social history:: Smoking status: Patient reports the use of cigarette tobacco products, smokes two packs cigarettes per day. ROS: 12:23 Constitutional: Negative for fever, chills, and weight loss, kb 12:23 ENT: Positive for dental pain, 12:23 All other systems are negative, Exam: 12:23 Constitutional: This is a well developed, well nourished patient who is awake, alert, kb and in no acute distress. Head/Face: Normocephalic, atraumatic. Cardiovascular: Regular rate Respiratory: Respirations even and unlabored. No increased work of breathing. Talking in full sentences Skin: Warm, dry with normal turgor. Normal color. MS/ Extremity: Pulses equal, no cyanosis. Neurovascular intact. Full, normal range of motion. Neuro: Awake and alert, GCS 15, oriented to person, place, time, and situation. Moves all extremities. Normal gait. 12:23 ENT: Dental exam: dental caries, pain, that is moderate, specifically in the upper left second bicuspid (#13), Vital Signs: 12:24 BP 146 / 99; Pulse 108; Resp 17; Temp 98.1(TE); Pulse Ox 95% ; Weight 74.84 kg; Height nj1 5 ft. 9 in. ; Pain 10/10; 12:24 Body Mass Index 24.37 (74.84 kg, 175.26 cm) [facility] 12:24 Pain Scale: Adult nj1 MDM: 11:55 Patient medically screened. kb 12:24 Data reviewed: vital signs, nurses notes. kb 12:24 Differential diagnosis: dental caries, gingivitis, dental abscess, pericoronitis. kb Counseling: I had a detailed discussion with the patient and/or guardian regarding the historical points, exam findings, and any diagnostic results supporting the discharge/admit diagnosis, the need for outpatient follow up, a dentist, to return to the emergency department if symptoms worsen or persist or if there are any questions or concerns that arise at home. Administered Medications: 12:37 Drug: HYDROcodone-acetaminophen PO 5 mg-325 mg 1 tabs PO once Route: PO; nj1 12:37 Drug: Amoxicillin-Clavulanate PO 875 mg PO once Route: PO; nj1 Disposition Summary: 09/02/23 12:00 Discharge Ordered Notes: Location: Home kb Condition: Stable kb Diagnosis - Other specified disorders of teeth and supporting structures kb Followup: kb - With: Emergency Department - When: As needed - Reason: Worsening of condition Followup: kb - With: Private Physician - When: 2 - 3 days - Reason: Recheck today's complaints, Continuance of care, Re-evaluation by your physician Discharge Instructions: - Discharge Summary Sheet kb - Dental Pain, [id number] kb - Dental Abscess, [id number] kb - Dental Caries, Adult, [id number] kb Forms: - Medication Reconciliation Form kb - Thank You Letter kb - Antibiotic Education kb - Prescription Opioid Use kb - Patient Portal Instructions kb - Leadership Thank You Letter kb Prescriptions: - Augmentin 875-125 mg Oral Tablet - take 1 tablet ORAL route every 12 hours for 10 days; 20 tablet; Refills: 0, kb Product Selection Permitted - Diclofenac Sodium 75 mg Oral tablet, delayed release (enteric coated) - take 1 tablet ORAL route 2 times per day As needed; 30 tablet; Refills: 0, kb Product Selection Permitted Signatures: Kenyatta Abreu FNP-C FNP-Nikia Loya RN RN nj1
--- NOTE | 2023-09-02 12:38 | ER ---
Nurse's Notes [facility] Name: Itzel Prado Age: 28 yrs Sex: Female : 1995 Arrival Date: 09/02/2023 Time: 11:41 Bed IW5 Private MD: Diagnosis: Other specified disorders of teeth and supporting structures Presentation: 09/02 12:24 Chief complaint: Patient states: Upper bilateral toothaches for about a week. [facility] Coronavirus screen: Vaccine status:. Coronavirus screen: Vaccine status: Patient reports being unvaccinated. Ebola Screen: Patient denies travel to an Ebola-affected area in the 21 days before illness onset. Initial Sepsis Screen: Does the patient meet any 2 criteria? HR > 90 bpm. No. Patient's initial sepsis screen is negative. Does the patient have a suspected source of infection? No. Patient's initial sepsis screen is negative. Risk Assessment: Do you want to hurt yourself or someone else? Patient reports no desire to harm self or others. Onset of symptoms was August 2023. 12:24 Method Of Arrival: Ambulatory [facility] 12:24 Acuity: YEE 4 [facility] Triage Assessment: 12:26 General: Appears in no apparent distress. comfortable, Behavior is calm, cooperative, nj appropriate for age. Pain: Complains of pain in tooth Pain currently is 10 out of 10 on a pain scale. EENT: Reports pain in left upper tooth. Neuro: No deficits noted. Cardiovascular: No deficits noted. Respiratory: No deficits noted. Historical: - Allergies: 12:26 No Known Allergies; nj1 - PMHx: 12:26 Asthma; nj1 - Immunization history:: Client reports having NOT received the Covid vaccine. - Social history:: Smoking status: Patient reports the use of cigarette tobacco products, smokes two packs cigarettes per day. Vital Signs: 12:24 BP 146 / 99; Pulse 108; Resp 17; Temp 98.1(TE); Pulse Ox 95% ; Weight 74.84 kg; Height nj1 5 ft. 9 in. ; Pain 10/10; 12:24 Body Mass Index 24.37 (74.84 kg, 175.26 cm) [facility] 12:24 Pain Scale: Adult [facility] ED Course: 11:44 Patient arrived in ED. ts1 11:55 Kenyatta Abreu [facility]C [facility] kb 11:55 Daniel Cohn MD is Attending Physician. kb 12:26 Triage completed. nj1 12:26 Arm band placed on right wrist. nj1 12:37 No provider procedures requiring assistance completed. Patient did not have IV access nj1 during this emergency room visit. Administered Medications: 12:37 Drug: HYDROcodone-acetaminophen PO 5 mg-325 mg 1 tabs PO once Route: PO; nj1 12:37 Drug: Amoxicillin-Clavulanate PO 875 mg PO once Route: PO; nj1 Outcome: 12:00 Discharge ordered by . kb 12:37 Discharged to home ambulatory, nj1 12:37 Condition: stable 12:37 Discharge instructions given to patient, Instructed on discharge instructions, follow up and referral plans. Demonstrated understanding of instructions, follow-up care, medications, Prescriptions given X 2, 12:38 Patient left the ED. nj1 Signatures: Kenyatta Abreu FNP-C FNP-Ckb Jaco, Norma, RN RN nj1 Nancy Blum PAS PAS ts1
[2023-09-02 13:29] VITALS: BP 146/99; TEMP 98.1; O2SAT 95
== END ==
LOC: ER 11:41
DX: K08.89 Other specified disorders of teeth and supporting structures (principal); F17.210 Nicotine dependence, cigarettes, uncomplicated
CPT/HCPCS: 99283

== ENCOUNTER 2025-04-08 17:52 | Emergency (ER) | payer OTHER ==
--- OUTSIDE RECORDS SUMMARY | 2025-04-08 17:55 | XMS REPORT | Continuity of Care Document ---
Author Name Unknown Address [address] [place] [address] [facility] [place] Address [address] [place] [address] Care Team Providers Care Paper Cutter Name Role Phone PCP, PATIENT DOES NOT HAVE A Primary Care Physic jacqueline Unavailable HILTON SALDANA Attending Clinician Unavailable HILTON SALDANA Attending Clinician Unavailable Doctor Unassigned, Mallory Attending Clinician U Fadia Ball MD Attending Clinician [phone] FADIA CHEEMA Attending Clinician Unavailable Fadia Cheema MD Admitting Clinician [phone] FADIA CHEEMA Admitting Clinician Unavailable Payers Payer Name Policy Type Policy Number Effective Date Expirati on Date Source [facility] Dick/ ESTUARDO POE [id number] 2024 00:00:00 Problems Condition Name Condition Details Condition Category Status Onset Date Resolution Date Last Treatment Date Treating Clinician Comments Source Pseudopreg brigid Pseudopreg brigid Disease Active 10-14 00:00: 00 [facility] Irregular menstrual cycle Irregular menstrual cycle Disease Active 10-05 00:00: 00 [facility] Obese Obese Disease Active 10-05 00:00: 00 [facility] Tobacco use disorder Tobacco use disorder Disease Active 10-05 00:00: 00 [facility] Schizophre kp Schizophre kp Disease Active 10-05 00:00: 00 [facility] Depression Depression Disease Active 10-05 00:00: 00 [facility] Generalize d anxiety disorder Generalize d anxiety disorder Disease Active 10-05 00:00: 00 [facility] History of suicide attempt History of suicide attempt Disease Active 10-05 00:00: 00 [facility] Allergies, Adverse Reactions, Alerts Allergy Name Allergy Type Status Severity Reaction(s) Onset Date Inactive Date Treating Clinician Comments Source Quetiapi ne Fumarate Propensi ty to adverse reaction s Active Unknown - See comments 10-03 00:00: 00 [facility] QUETIAPI NE FUMARATE DRUG INGREDI Active Unknown-Cmnt 10-03 00:00: 00 [facility] Social History Social Habit Start Date Stop Date Quantity Comments Source ASSERTION Not [facility] of [facility] use Cigarette Smoker [facility] Alcoholic beverage intake 2025-03-17 00:00:00 2025-03-17 00:00:00 Current non-drinker of alcohol (finding) [facility] History of Social function 2023-09-12 00:00:00 2023-09-12 00:00:00 [facility] Alcohol intake 2017-03-12 00:00:00 2017-03-12 00:00:00 Current non-drinker of alcohol (finding) [facility] Cigarette pack-years 2014-10-03 00:00:00 2014-10-03 00:00:00 [facility] Tobacco use and exposure 2014-10-03 00:00:00 2014-10-03 00:00:00 Smokeless tobacco non-user [facility] Cigarettes smoked current (pack per day) - Reported 2014-10-03 00:00:00 2014-10-03 00:00:00 [facility] Sex assigned at 1995 00:00:00 1995 00:00:00 [facility] Smoking Status Start Date Stop Date Source Smokes tobacco daily 2014-10-03 00:00:00 [facility] Medications Ordered Medication Name Filled Medication Name Start Date Stop Date Current Medication? Ordering Clinician Indication Dosage Frequency Signature (SIG) Comments Components Source RISPERIDONE MICROSPHERE S (RISPERDAL CONSTA IM) 03-17 20:11: 42 Yes [id number] by Intramuscu lar route every 2 (two) weeks. [facility] lurasidone (LATUDA) 80 mg Tab 03-17 20:11: 42 Yes [id number] 1{tbl} Take 1 Tab by mouth daily. [facility] divalproex (DEPAKOTE) 500 mg EC tablet 03-17 20:11: 42 Yes [id number] 500mg Take 500 mg by mouth every 12 (twelve) hours. [facility] traZODone (DESYREL) 150 mg tablet 03-17 20:11: 42 Yes [id number] 150mg Take 150 mg by mouth at bedtime. [facility] RISPERIDONE MICROSPHERE S (RISPERDAL CONSTA IM) 10-15 02:12: 44 Yes [id number] by Intramuscu lar route every 2 (two) weeks. [facility] lurasidone (LATUDA) 80 mg Tab 10-15 02:12: 44 Yes [id number] 1{tbl} Take 1 Tab by mouth daily. [facility] divalproex (DEPAKOTE) 500 mg EC tablet 10-15 02:12: 44 Yes [id number] 500mg Take 500 mg by mouth every 12 (twelve) hours. [facility] traZODone (DESYREL) 150 mg tablet 10-15 02:12: 44 Yes [id number] 150mg Take 150 mg by mouth at bedtime. [facility] RISPERIDONE MICROSPHERE S (RISPERDAL CONSTA IM) 10-14 20:12: 44 Yes [id number] by Intramuscu lar route every 2 (two) weeks. [facility] lurasidone (LATUDA) 80 mg Tab 10-14 20:12: 44 Yes [id number] 1{tbl} Take 1 Tab by mouth daily. [facility] divalproex (DEPAKOTE) 500 mg EC tablet 10-14 20:12: 44 Yes [id number] 500mg Take 500 mg by mouth every 12 (twelve) hours. [facility] traZODone (DESYREL) 150 mg tablet 10-14 20:12: 44 Yes [id number] 150mg Take 150 mg by mouth at bedtime. [facility] Immunizations Ordered Immunization Name Filled Immunization Name Date Status Comments Source Influenza Virus Vaccine 2010-05-13 00:00:00 Completed [facility] Influenza Virus Vaccine 2010-05-13 00:00:00 Completed [facility] Influenza Virus Vaccine 2010-05-13 00:00:00 Completed HPV 2009-12-28 00:00:00 Completed [facility] HPV 2009-12-28 00:00:00 Completed [facility] HPV 2009-09-30 00:00:00 Completed [facility] HPV 2009-09-30 00:00:00 Completed [facility] HPV 2009-06-30 00:00:00 Completed [facility] HPV 2009-06-30 00:00:00 Completed [facility] Td 2007-08-21 00:00:00 Completed [facility] Td 2007-08-21 00:00:00 Completed [facility] TD, NOS 2007-08-21 00:00:00 Completed Influenza Virus Vaccine 2005-07-06 00:00:00 Completed [facility] Influenza Virus Vaccine 2005-07-06 00:00:00 Completed [facility] Influenza Virus Vaccine 2005-07-06 00:00:00 Completed [facility] Vital Signs Vital Name Observation Time Observation Value Comments S ource Systolic blood pressure 2025-03-18 00:40:00 142 mm[Hg] [facility] Diastolic blood pressure 2025-03-18 00:40:00 98 mm[Hg] [facility] Heart rate 2025-03-18 00:40:00 119 /min [facility] Body temperature 2025-03-18 00:40:00 36.89 Анна [facility] Respiratory rate 2025-03-18 00:40:00 18 /min [facility] Body height 2025-03-18 00:40:00 175.3 cm [facility] Body weight 2025-03-18 00:40:00 75.751 kg [facility] BMI 2025-03-18 00:40:00 24.66 kg/m2 [facility] Oxygen saturation in Arterial blood by Pulse oximetry 2025-03-18 00:40:00 99 /min [facility] Systolic blood pressure 2020-10-15 00:30:00 136 mm[Hg] [facility] Diastolic blood pressure 2020-10-15 00:30:00 75 mm[Hg] [facility] Heart rate 2020-10-15 00:30:00 104 /min [facility] Respiratory rate 2020-10-15 00:30:00 18 /min [facility] Oxygen saturation in Arterial blood by Pulse oximetry 2020-10-15 00:30:00 100 /min [facility] Body temperature 2020-10-15 00:05:00 36.94 Анна [facility] Procedures Procedure Date / Time Performed Performing Clinician Source POCT TEST 2025-03-18 01:11:00 Hilton Saldana [facility] VACCINATIONS - CONSENTS, ELIGIBILITY, HISTORY 2022-01-03 05:01:00 Doctor Unassigned, Mallory [facility] Encounters Start Date/Time End Date/Time Encounter Type Admission Type Attending Clinicians Care Facility Care Department Encounter ID Source 2025-03-17 19:55:00 2025-03-17 20:11:00 Emergency X HILTON SALDANA WAKILI [facility] ERT [id number] [facility] 2022-01-03 00:00:00 2022-01-03 00:00:00 Orders Only Doctor Unassigned, Mallory [facility] [id number] [facility] 2020-10-14 17:50:00 2020-10-14 19:15:00 Hospital Encounter Adyoselin, Fadia L [facility] [id number] [facility] 2020-10-14 17:50:00 2020-10-14 17:50:00 Outpatient P FADIA CHEEMA [facility] ADAMARIS [id number] [facility] Results Test Description Test Time Test Comments Results Result Co mments Source [facility] Notes Date/Time Note Provider Source 2025-03-17 20:03:23 Patient given discharge instructions, and verbalized no further concerns or questions. Skin p/w/d, rr equal and non labored. A&OX4. Ambulated independently with a steady gait in stable condition. [facility] 2025-03-17 19:32:25 Patient comes in with multiple complaints. Denies HI or SI, reports , 6 months along. Has had no care. Has hx of depression and has been feeling tired lately. Skin p/w/d, rr equal and non labored. A&OX4. Denies any issues with baby. Dr. Saldana in room with senior copywriter, and patient. test done and it is negative. [facility]
--- NOTE | 2025-04-08 18:04 | EDPHYS ---
Physician Documentation [facility] Name: Itzel Prado Age: 29 yrs Sex: Female : 1995 Arrival Date: 04/08/2025 Time: 17:52 Bed IW1 Private MD: ED Physician Shelly Saleem HPI: 04/08 18:05 This 29 yrs old Female presents to ER via Ambulatory with complaints of right kb hand middle finger pain/swelling. 18:05 Patient is a 29-year-old female who presents for pain, redness and swelling to right kb middle finger that started 1 week ago. States symptoms of gotten progressively worse. Denies fever.. TRAVEL PTA: 18:00 LMP N/A - control method, Not dd2 Historical: - Allergies: 18:00 No Known Allergies; dd2 - PMHx: 18:00 Asthma; dd2 - PSHx: 18:00 None; dd2 - Immunization history:: Adult Immunizations unknown. - Infectious Disease History:: Denies. - Social history:: Smoking status: Patient reports the use of cigarette tobacco products, smokes one pack cigarettes per day. ROS: 18:04 Constitutional: As per HPI kb Exam: 18:04 Constitutional: This is a well developed, well nourished patient who is awake, alert, kb and in no acute distress. Head/Face: Normocephalic, atraumatic. ENT: Moist Mucous membranes Respiratory: Respirations even and unlabored. No increased work of breathing. Talking in full sentences MS/ Extremity: Pulses equal, no cyanosis. Neurovascular intact. Full, normal range of motion. Neuro: Awake and alert, GCS 15, oriented to person, place, time, and situation. 18:04 Skin: Paronychia right middle finger. Vital Signs: 17:59 BP 140 / 93; Pulse 101; Resp 17; Temp 98.2; Pulse Ox 97% on R/A; Pain 8/10; dd2 17:59 Pain Scale: Adult dd2 Procedures: 18:04 I \T\ D: Incision and drainage was performed for an abscess of the right right middle kb finger Prepped with alcohol, Anesthetized with nothing. Incised with 18-gauge needle. Drained moderate amount purulent fluid. the patient tolerated the procedure well. MDM: 17:56 Medical Screening Exam initiated kb 18:05 Differential diagnosis: Ingrown nail, paronychia, cellulitis. Data reviewed: vital kb signs, nurses notes. Counseling: I had a detailed discussion with the patient and/or guardian regarding the historical points, exam findings, and any diagnostic results supporting the discharge/admit diagnosis, the need for outpatient follow up, a family practitioner, to return to the emergency department if symptoms worsen or persist or if there are any questions or concerns that arise at home. Administered Medications: 18:11 Drug: HYDROcodone-acetaminophen PO 5 mg-325 mg 1 tabs PO once Route: PO; dd2 18:11 Drug: Ibuprofen PO 600 mg PO once Route: PO; dd2 18:11 Drug: Cephalexin PO 500 mg PO once Route: PO; dd2 Disposition Summary: 04/08/25 18:04 Discharge Ordered Notes: Location: Home kb Condition: Stable kb Diagnosis - Paronychia right middle finger kb Followup: kb - With: Emergency Department - When: As needed - Reason: Worsening of condition Followup: kb - With: Private Physician - When: 2 - 3 days - Reason: Recheck today's complaints, Continuance of care, Re-evaluation by your physician Discharge Instructions: - Discharge Summary Sheet kb - Paronychia, [id number] kb Forms: - Medication Reconciliation Form kb - Antibiotic Education kb - Prescription Opioid Use kb - Patient Portal Instructions kb - Leadership Thank You Letter kb Prescriptions: - Cephalexin 500 mg Oral Capsule - take 1 capsule ORAL route every 8 hours for 10 days; 30 capsule; Refills: 0, kb Product Selection Permitted Signatures: Kenyatta Abreu FNP-C FNP-Ckb DAVIS, DIANA, RN RN dd2
--- NOTE | 2025-04-08 18:04 | ER ---
Nurse's Notes [facility] Name: Itzel Prado Age: 29 yrs Sex: Female : 1995 Arrival Date: 04/08/2025 Time: 17:52 Bed IW1 Private MD: Diagnosis: Paronychia right middle finger Presentation: 04/08 17:59 Chief complaint: Patient states: MIDDLE FINGER BEGAN SWELLING AND PAINFUL ABOUT 5 DAYS dd2 AGO AND IS GETTING WORSE. Coronavirus screen: At this time, the client does not indicate any symptoms associated with coronavirus-19. Ebola Screen: No symptoms or risks identified at this time. Initial Sepsis Screen: Does the patient meet any 2 criteria? No. Patient's initial sepsis screen is negative. Does the patient have a suspected source of infection? No. Patient's initial sepsis screen is negative. Risk Assessment: Do you want to hurt yourself or someone else? Patient reports no desire to harm self or others. Onset of symptoms was April 03, 2025. 17:59 Method Of Arrival: Ambulatory dd2 17:59 Acuity: YEE 4 dd2 Triage Assessment: 18:00 General: Appears in no apparent distress. uncomfortable, Behavior is calm, cooperative, dd2 appropriate for age. Pain: Complains of pain in right middle finger Pain currently is 8 out of 10 on a pain scale. EENT: No deficits noted. No signs and/or symptoms were reported regarding the EENT system. Neuro: No deficits noted. Cardiovascular: No deficits noted. Respiratory: No deficits noted. GI: No deficits noted. No signs and/or symptoms were reported involving the gastrointestinal system. : No deficits noted. No signs and/or symptoms were reported regarding the genitourinary system. Derm: Abscess located on right middle fingernail Reports burning, pain SWELLIING. Musculoskeletal: Swelling present in right middle finger. 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 - Infectious Disease History:: Denies. - Social history:: Smoking status: Patient reports the use of cigarette tobacco products, smokes one pack cigarettes per day. Screenin:03 [facility] ED Fall Risk Assessment (Adult) History of falling in the last 3 months, dd2 including since admission No falls in past 3 months (0 pts) Confusion or Disorientation No (0 pts) Intoxicated or Sedated No (0 pts) Impaired Gait No (0 pts) Mobility Assist Device Used No (0 pt) Altered Elimination No (0 pt) Score/Fall Risk Level 0 - 2 = Low Risk Oriented to surroundings, Maintained a safe environment, Educated pt \T\ family on fall prevention, incl call for assistance when getting out of bed, Hourly rounding (assess needs \T\ fall precautionary measures) done. Abuse screen: Denies threats or abuse. Denies injuries from another. Nutritional screening: No deficits noted. Tuberculosis screening: No symptoms or risk factors identified. Assessment: 18:03 Reassessment: SEE TRIAGE ASSESSMENT FOR FULL ASSESSMENT. dd2 Vital Signs: 17:59 BP 140 / 93; Pulse 101; Resp 17; Temp 98.2; Pulse Ox 97% on R/A; Pain 8/10; dd2 17:59 Pain Scale: Adult dd2 ED Course: 17:55 Patient arrived in ED. im 17:55 Kenyatta Abreu FNP-C is PHCP. kb 17:55 Shelly Saleem MD is Attending Physician. kb 18:00 Triage completed. dd2 18:00 Arm band placed on left wrist. dd2 18:03 Patient has correct armband on for positive identification. Client placed on continuous dd2 cardiac and pulse oximetry monitoring. NIBP monitoring applied. 18:03 No provider procedures requiring assistance completed. Patient did not have IV access dd2 during this emergency room visit. 18:11 Provided Education on: D/C EDUCATION. dd2 Administered Medications: 18:11 Drug: HYDROcodone-acetaminophen PO 5 mg-325 mg 1 tabs PO once Route: PO; dd2 18:11 Drug: Ibuprofen PO 600 mg PO once Route: PO; dd2 18:11 Drug: Cephalexin PO 500 mg PO once Route: PO; dd2 Medication: 18:03 VIS not applicable for this client. dd2 Outcome: 18:04 Discharge ordered by . kb 18:11 Discharged to home ambulatory, dd2 18:11 Condition: stable 18:11 Discharge instructions given to patient, Instructed on discharge instructions, follow up and referral plans. medication usage, Demonstrated understanding of instructions, follow-up care, medications, Prescriptions given X 1, 18:12 Patient left the ED. dd2 Signatures: Kenyatta Abreu FNP-C FNP-Suad Desir DIANA, RN RN dd2
[2025-04-08] MEDS ORDERED: CEPHALEXIN 250 MG CAP ONE (18:07)
[2025-04-08] MEDS ORDERED: IBUPROFEN 400 MG TAB ONE (18:08)
[2025-04-08] MEDS ORDERED: IBUPROFEN 200 MG TAB PO ONE (18:08)
[2025-04-08] MEDS ORDERED: HYDROCODONE/APAP 5/325 MG TAB ONE (18:08)
[2025-04-08 21:36] VITALS: BP 140/93; TEMP 98.2; O2SAT 97
== END 2025-04-08 18:12 | disposition home or self-care (01) ==
LOC: ER 17:52
PROC: 0H9FXZZ Drainage of Right Hand Skin, External Approach (ICD-10-PCS; principal; 2025-04-08)
DX: L03.011 Cellulitis of right finger (principal)
CPT/HCPCS: 99283